=== PATIENT | female | born 1975 | race Two or more races ===

== ENCOUNTER 2018-07-16 14:52 | Emergency (ER) | payer SELFPAY ==
[~2018-07-16] VITALS: Ht 167.6 cm; Wt 104.8 kg
[~2018-07-16 14:52] MED LIST: ACET325T53 PO
--- NOTE | 2018-07-16 15:07 | NUR ---
PT BROUGHT IN BY JUAN, FROM WORK, ALCOHOL INTOXICATION WHILE AT WORK, DRUNK 1 PINT OF VODKA
--- NOTE | 2018-07-16 17:36 | NUR ---
PT REFUSING VITAL SIGNS AND TO BE CLEANED URINATED OVER SELF
--- NOTE | 2018-07-16 19:43 | NUR ---
PT RESTING COMFORTABLY IN BED. VITAL SIGNS STABLE. AAOX4. NO ACUTE DISTRESS NOTED AT THIS TIME. WILL CONTINUE TO MONITOR
--- NOTE | 2018-07-16 19:50 | NUR ---
AT BEDSIDE FOR REEVALUATION. PT AAOX4. ABLE TO AMBULATE WITH STEADY GAIT. DENIES SI/HI AT THIS TIME. WILL CONTINUE TO MONITOR
--- NOTE | 2018-07-16 20:19 | NUR ---
Patient discharged to home in stable condition. Written and verbal after care instructions given. Patient verbalizes understanding of instruction.Pt ambulatory with a steady gait. Instructed pt not to drive, pt verbalized understanding
[2018-07-16 20:21] VITALS: BP 128/70
== END 2018-07-16 20:21 | disposition home or self-care (01) ==
LOC: ER 14:57
DX: F10.129 Alcohol abuse with intoxication, unspecified (principal); Z60.2 Problems related to living alone; Y90.9 Presence of alcohol in blood, level not specified
CPT/HCPCS: 82962-TC